=== PATIENT | female | born 1975 | race Caucasian/White ===

== ENCOUNTER 2021-06-11 20:53 | Inpatient (IN) ==
[2021-06-11] MEDS ORDERED: methylPREDNISolone 125 MG/2 ML VIAL IVP ONE (21:03)
[2021-06-11] MEDS ORDERED: Ipratropium/Albuterol Neb 3 ML IH ONE (21:03)
[2021-06-11 21:32] LABS: Basophils % 0.7 %; Eosinophils # 0.2 K/mcL (0.0-0.6); Eosinophils % 3.6 %; Hematocrit 37.5 % (35.3-44.9); Hemoglobin 11.6 g/dL (11.5-15.4); Lymphocytes # 1.6 K/mcL (0.6-4.6); Lymphocytes % 26.8 %; Mean Corpuscular HGB Conc 30.9 g/dL (31.6-35.5); Mean Corpuscular Hemoglobin 27.8 pg (28.0-33.3); Mean Corpuscular Volume 89.7 fL (83.0-100.0); Mean Platelet Volume 9.7 fL (9.4-12.4); Monocytes # 0.8 K/mcL (0.0-1.3); Monocytes % 13.4 %; Neutrophils # 3.4 K/mcL (1.6-8.9); Platelet Count 375 K/mcL (140-400); Red Blood Count 4.18 M/mcL (3.82-4.97); Red Cell Distribution Width 15.1 % (11.5-14.5); Segmented Neutrophils % 55.5 %
[2021-06-11 21:56] LABS: Alanine Aminotransferase 13 Units/L (7-52); Albumin 4.3 g/dL (3.5-5.7); Albumin/Globulin Ratio 1.4 (1.1-2.2); Alkaline Phosphatase 58 Units/L (34-104); Aspartate Amino Transferase 19 Units/L (13-39); BUN/Creatinine Ratio 15 (6-26); Bilirubin,Total 0.2 mg/dL (0.3-1.0); Blood Urea Nitrogen 14 mg/dL (6-20); Calcium 9.2 mg/dL (8.6-10.3); Carbon Dioxide 26 mEq/L (23-29); Chloride 106 mEq/L (98-107); Globulin 3.1 g/dL (2.4-3.5); Glucose 92 mg/dL (70-105); Osmolality,Calculated 288 (280-300); Potassium 3.5 mEq/L (3.5-5.1); Sodium 139 mEq/L (136-145); Total Protein 7.4 g/dL (6.4-8.9); Troponin I < 0.03 ng/mL (< 0.04); eGFR For African Americans > 60 (> 60); eGFR For Non-African Americans > 60 (> 60)
[2021-06-11] MEDS ORDERED: cefTRIAXone 1,000 MG in Water for inj. (sterile) 10 ML IVP ONE (22:09)
[2021-06-11 22:17] LABS: Influenza A PCR Negative (Negative); Influenza B PCR Negative (Negative); Resp. Syncytial Virus PCR Negative (Negative)
[2021-06-11 22:21] LABS: SARS-CoV-2 by PCR (In House) Positive (Negative)
[2021-06-11] MEDS ORDERED: Isovue-370 500 ML BOTTLE IVP ONE (22:25)
[2021-06-12] MEDS ORDERED: Morphine Sulfate 2 MG/ML SYRINGE IVP ONE (00:36)
[2021-06-12] MEDS ORDERED: Naloxone 0.4 MG/ML INJ IVP PRN (01:35)
[2021-06-12] MEDS ORDERED: Melatonin 3 MG TABLET PO PRN (01:35)
[2021-06-12] MEDS ORDERED: *HR* Dextrose 50 % in Water (Syg) 50 ML SYRINGE IVP PRN (01:40)
[2021-06-12] MEDS ORDERED: D5% in Water 1,000 ML IVC PRN (01:40)
[2021-06-12] MEDS ORDERED: Dextrose Gel 15 GM/37.5 ML TUBE PO PRN ×2 (01:40)
[2021-06-12] MEDS ORDERED: Acetaminophen 650 MG RECTAL SUPP RC PRN (01:56)
[2021-06-12] MEDS ORDERED: Furosemide 20 MG/2 ML VIAL IVP ONE (02:30)
[2021-06-12] MEDS ORDERED: Vancomycin 1,500 MG/265 ML IV.SOLN IVPB ONE (02:42)
[2021-06-12] MEDS ORDERED: Remdesivir 200 MG in 0.9 % Sodium Chloride 100 ML IVPB ONE (03:00)
[2021-06-12 03:45] LABS: ABG Base Excess -2 mEq/L (-2 to 3); ABG HCO3 23 mEq/L (21-27); ABG Oxygen Saturation 100 % (95-98); ABG PCO2 38 mmHg (35-45); ABG PH 7.39 pH Units (7.32-7.45); ABG PO2 220 mmHg (85-104); ABG TCO2 24 mEq/L (20-26)
[2021-06-12] MEDS: Ipratropium 1 PUFF INHALER IH SCH ×5 (03:56→20:04)
[2021-06-12] MEDS ORDERED: Chloraseptic Spray 177 ML BOTTLE MM PRN (04:48)
[2021-06-12] MEDS: Ondansetron 4 MG/2 ML VIAL IVP PRN (04:58)
[2021-06-12] MEDS: Morphine Sulfate 2 MG/ML SYRINGE IVP PRN ×3 (04:59→20:13)
[2021-06-12] MEDS: Acetylcysteine 10% 2 ML INHSOL IH SCH ×3 (07:20→20:05)
[2021-06-12] MEDS: Budesonide/Formoterol 160/4.5 1 PUFF INH IH SCH ×2 (07:20→20:06)
[2021-06-12] MEDS: Artificial Tears SOLN 15 ML BOTTLE BOTH EYES SCH ×4 (07:46→20:18)
[2021-06-12 08:57] LABS: Basophils % 0.2 %; Hematocrit 39.6 % (35.3-44.9); Hemoglobin 12.1 g/dL (11.5-15.4); Immature Granulocytes % 0.2 % (0-4); Lymphocytes # 0.6 K/mcL (0.6-4.6); Mean Corpuscular HGB Conc 30.6 g/dL (31.6-35.5); Mean Corpuscular Hemoglobin 27.4 pg (28.0-33.3); Mean Corpuscular Volume 89.6 fL (83.0-100.0); Mean Platelet Volume 10.5 fL (9.4-12.4); Monocytes # 0.1 K/mcL (0.0-1.3); Monocytes % 1.4 %; Neutrophils # 5.7 K/mcL (1.6-8.9); Platelet Count 327 K/mcL (140-400); Red Blood Count 4.42 M/mcL (3.82-4.97); Red Cell Distribution Width 15.2 % (11.5-14.5); Segmented Neutrophils % 89.2 %; White Blood Count 6.4 K/mcL (4.3-11.1)
[2021-06-12] MEDS: Saliva Stimulant 44.3ml BOTTLE PO SCH ×3 (09:17→20:18)
[2021-06-12] MEDS: Chlorhexidine Rinse 15 ML MOUTHWASH MM SCH ×2 (09:18→20:18)
[2021-06-12] MEDS: Saline Nasal Spray 44 ML BOTTLE NS SCH ×3 (09:18→20:18)
[2021-06-12 09:19] LABS: Prothrombin Time 11.3 Seconds (9.4-12.1)
[2021-06-12 09:21] LABS: Activated Partial Thrombo Time 31.1 Seconds (26.0-36.0)
[2021-06-12 09:39] LABS: Alanine Aminotransferase 13 Units/L (7-52); Albumin 4.3 g/dL (3.5-5.7); Albumin/Globulin Ratio 1.2 (1.1-2.2); Alkaline Phosphatase 60 Units/L (34-104); Aspartate Amino Transferase 18 Units/L (13-39); BUN/Creatinine Ratio 14 (6-26); Bilirubin,Total 0.3 mg/dL (0.3-1.0); Blood Urea Nitrogen 11 mg/dL (6-20); C-Reactive Protein < 5 mg/L (Less than 10); Calcium 9.2 mg/dL (8.6-10.3); Carbon Dioxide 23 mEq/L (23-29); Chloride 106 mEq/L (98-107); Ferritin < 8 ng/mL (10-120); Globulin 3.6 g/dL (2.4-3.5); Glucose 138 mg/dL (70-105); Lactate Dehydrogenase 169 Units/L (140-271); Osmolality,Calculated 286 (280-300); Phosphorous 2.8 mg/dL (2.7-4.5); Potassium 4.4 mEq/L (3.5-5.1); Sodium 137 mEq/L (136-145); Total Protein 7.9 g/dL (6.4-8.9); eGFR For African Americans > 60 (> 60); eGFR For Non-African Americans > 60 (> 60)
[2021-06-12] MEDS: Piperacillin/Tazobactam 3.375 GM in 0.9 % Sodium Chloride Mini Bag 100 ML IVPB SCH ×2 (10:59→12:07)
[2021-06-12 11:32] LABS: Magnesium 1.9 mg/dL (1.6-2.6)
[2021-06-12] MEDS ORDERED: Vancomycin 1,250 MG/262.5 ML IV.SOLN IVPB SCH (15:00)
[2021-06-12] MEDS ORDERED: Lidocaine -MPF 2% 5 ML VIAL ONE (15:29)
[2021-06-12] MEDS ORDERED: *HR* Propofol 200 MG/20 ML VIAL IVP ONE (15:29)
[2021-06-12] MEDS ORDERED: Lidocaine -MPF 4% 5 ML AMPUL ONE (15:45)
[2021-06-13] MEDS: Ipratropium 1 PUFF INHALER IH SCH ×6 (00:13→20:33)
[2021-06-13] MEDS: Piperacillin/Tazobactam 3.375 GM in 0.9 % Sodium Chloride Mini Bag 100 ML IVPB SCH ×2 (01:36→10:58)
[2021-06-13] MEDS: Artificial Tears SOLN 15 ML BOTTLE BOTH EYES SCH ×6 (01:45→20:41)
[2021-06-13 02:12] LABS: Basophils % 0.1 %; Hematocrit 35.8 % (35.3-44.9); Immature Granulocytes % 0.3 % (0-4); Lymphocytes # 0.9 K/mcL (0.6-4.6); Lymphocytes % 7.1 %; Mean Corpuscular HGB Conc 30.7 g/dL (31.6-35.5); Mean Corpuscular Hemoglobin 27.4 pg (28.0-33.3); Mean Corpuscular Volume 89.1 fL (83.0-100.0); Mean Platelet Volume 10.2 fL (9.4-12.4); Monocytes # 0.9 K/mcL (0.0-1.3); Monocytes % 7.3 %; Neutrophils # 10.4 K/mcL (1.6-8.9); Platelet Count 370 K/mcL (140-400); Red Blood Count 4.02 M/mcL (3.82-4.97); Red Cell Distribution Width 15.2 % (11.5-14.5); Segmented Neutrophils % 85.2 %
[2021-06-13 02:14] LABS: White Blood Count 12.2 K/mcL (4.3-11.1)
[2021-06-13] MEDS: Morphine Sulfate 2 MG/ML SYRINGE IVP PRN ×5 (02:34→22:46)
[2021-06-13 02:45] LABS: Phosphorous 2.3 mg/dL (2.7-4.5)
[2021-06-13 02:47] LABS: Alanine Aminotransferase 12 Units/L (7-52); Albumin 3.9 g/dL (3.5-5.7); Albumin/Globulin Ratio 1.2 (1.1-2.2); Alkaline Phosphatase 51 Units/L (34-104); Aspartate Amino Transferase 18 Units/L (13-39); BUN/Creatinine Ratio 20 (6-26); Bilirubin,Total 0.3 mg/dL (0.3-1.0); Blood Urea Nitrogen 15 mg/dL (6-20); Carbon Dioxide 22 mEq/L (23-29); Chloride 103 mEq/L (98-107); Globulin 3.2 g/dL (2.4-3.5); Glucose 126 mg/dL (70-105); Osmolality,Calculated 284 (280-300); Potassium 4.2 mEq/L (3.5-5.1); Sodium 136 mEq/L (136-145); Total Protein 7.1 g/dL (6.4-8.9); eGFR For African Americans > 60 (> 60); eGFR For Non-African Americans > 60 (> 60)
[2021-06-13] MEDS: Acetylcysteine 10% 2 ML INHSOL IH SCH ×4 (03:32→20:34)
[2021-06-13] MEDS: Remdesivir 100 MG in 0.9 % Sodium Chloride 100 ML IVPB SCH (06:05)
[2021-06-13] MEDS: Budesonide/Formoterol 160/4.5 1 PUFF INH IH SCH ×2 (07:33→20:34)
[2021-06-13] MEDS: Saliva Stimulant 44.3ml BOTTLE PO SCH ×4 (08:48→20:41)
[2021-06-13] MEDS: Furosemide 20 MG/2 ML VIAL IVP SCH (08:49)
[2021-06-13] MEDS: Chlorhexidine Rinse 15 ML MOUTHWASH MM SCH ×2 (08:49→20:41)
[2021-06-13] MEDS: Saline Nasal Spray 44 ML BOTTLE NS SCH ×4 (08:49→20:41)
[2021-06-13 12:11] LABS: ABG Base Excess -1 mEq/L (-2 to 3); ABG HCO3 24 mEq/L (21-27); ABG Oxygen Saturation 95 % (95-98); ABG PCO2 39 mmHg (35-45); ABG PO2 77 mmHg (85-104); ABG TCO2 25 mEq/L (20-26)
[2021-06-13] MEDS: levoFLOXacin 750 MG/150 ML 750 MG/150 ML BAG IVPB SCH (13:06)
[2021-06-13] MEDS: Ondansetron 4 MG/2 ML VIAL IVP PRN (20:42)
[2021-06-14] MEDS: Ipratropium 1 PUFF INHALER IH SCH ×7 (00:11→23:18)
[2021-06-14] MEDS: Artificial Tears SOLN 15 ML BOTTLE BOTH EYES SCH ×6 (02:48→22:40)
[2021-06-14] MEDS: Ondansetron 4 MG/2 ML VIAL IVP PRN ×2 (03:13→10:01)
[2021-06-14] MEDS: Morphine Sulfate 2 MG/ML SYRINGE IVP PRN (03:13)
[2021-06-14] MEDS: Remdesivir 100 MG in 0.9 % Sodium Chloride 100 ML IVPB SCH (03:28)
[2021-06-14 03:48] LABS: Alanine Aminotransferase 14 Units/L (7-52); Albumin 3.7 g/dL (3.5-5.7); Albumin/Globulin Ratio 1.2 (1.1-2.2); Alkaline Phosphatase 47 Units/L (34-104); Aspartate Amino Transferase 17 Units/L (13-39); BUN/Creatinine Ratio 20 (6-26); Bilirubin,Total 0.2 mg/dL (0.3-1.0); Blood Urea Nitrogen 18 mg/dL (6-20); Calcium 8.6 mg/dL (8.6-10.3); Carbon Dioxide 25 mEq/L (23-29); Chloride 105 mEq/L (98-107); Globulin 3.1 g/dL (2.4-3.5); Glucose 102 mg/dL (70-105); Osmolality,Calculated 292 (280-300); Potassium 3.7 mEq/L (3.5-5.1); Sodium 140 mEq/L (136-145); Total Protein 6.8 g/dL (6.4-8.9); eGFR For African Americans > 60 (> 60); eGFR For Non-African Americans > 60 (> 60)
[2021-06-14] MEDS: Acetylcysteine 10% 2 ML INHSOL IH SCH ×3 (04:07→16:04)
[2021-06-14] MEDS: Budesonide/Formoterol 160/4.5 1 PUFF INH IH SCH ×2 (07:54→19:58)
[2021-06-14] MEDS: Saliva Stimulant 44.3ml BOTTLE PO SCH ×3 (09:08→15:53)
[2021-06-14] MEDS: Saline Nasal Spray 44 ML BOTTLE NS SCH ×4 (09:08→22:40)
[2021-06-14] MEDS: Chlorhexidine Rinse 15 ML MOUTHWASH MM SCH ×2 (09:22→22:40)
[2021-06-14] MEDS: Furosemide 20 MG/2 ML VIAL IVP SCH (09:26)
[2021-06-14] MEDS: levoFLOXacin 750 MG/150 ML 750 MG/150 ML BAG IVPB SCH (12:23)
[2021-06-15] MEDS: Saliva Stimulant 44.3ml BOTTLE PO SCH ×5 (03:48→20:54)
[2021-06-15] MEDS: Artificial Tears SOLN 15 ML BOTTLE BOTH EYES SCH ×6 (03:48→20:54)
[2021-06-15] MEDS: Remdesivir 100 MG in 0.9 % Sodium Chloride 100 ML IVPB SCH (03:49)
[2021-06-15] MEDS: Ipratropium 1 PUFF INHALER IH SCH ×6 (04:08→23:51)
[2021-06-15 06:20] LABS: Alanine Aminotransferase 13 Units/L (7-52); Albumin 3.8 g/dL (3.5-5.7); Albumin/Globulin Ratio 1.2 (1.1-2.2); Alkaline Phosphatase 54 Units/L (34-104); Aspartate Amino Transferase 12 Units/L (13-39); BUN/Creatinine Ratio 24 (6-26); Bilirubin,Total 0.3 mg/dL (0.3-1.0); Blood Urea Nitrogen 22 mg/dL (6-20); Calcium 9.1 mg/dL (8.6-10.3); Carbon Dioxide 26 mEq/L (23-29); Chloride 103 mEq/L (98-107); Globulin 3.1 g/dL (2.4-3.5); Glucose 80 mg/dL (70-105); Osmolality,Calculated 288 (280-300); Potassium 3.6 mEq/L (3.5-5.1); Sodium 138 mEq/L (136-145); Total Protein 6.9 g/dL (6.4-8.9); eGFR For African Americans > 60 (> 60); eGFR For Non-African Americans > 60 (> 60)
[2021-06-15] MEDS: Budesonide/Formoterol 160/4.5 1 PUFF INH IH SCH ×2 (07:57→20:21)
[2021-06-15] MEDS: Saline Nasal Spray 44 ML BOTTLE NS SCH ×4 (09:54→20:53)
[2021-06-15] MEDS: Chlorhexidine Rinse 15 ML MOUTHWASH MM SCH ×2 (09:54→20:54)
[2021-06-15] MEDS: levoFLOXacin 750 MG/150 ML 750 MG/150 ML BAG IVPB SCH (10:15)
[2021-06-15] MEDS: Furosemide 20 MG/2 ML VIAL IVP SCH (10:16)
[2021-06-15] MEDS: Morphine Sulfate 2 MG/ML SYRINGE IVP PRN ×2 (16:28→20:56)
[2021-06-15] MEDS: Ondansetron 4 MG/2 ML VIAL IVP PRN (20:48)
[2021-06-16] MEDS: Artificial Tears SOLN 15 ML BOTTLE BOTH EYES SCH ×3 (01:43→07:51)
[2021-06-16] MEDS: Morphine Sulfate 2 MG/ML SYRINGE IVP PRN ×2 (01:57→08:07)
[2021-06-16] MEDS: Remdesivir 100 MG in 0.9 % Sodium Chloride 100 ML IVPB SCH (03:04)
[2021-06-16] MEDS: Ipratropium 1 PUFF INHALER IH SCH ×3 (04:06→11:39)
[2021-06-16 04:32] VITALS: BP 110/76; PULSE 76; TEMP 98.3; O2SAT 97
[2021-06-16] MEDS: Budesonide/Formoterol 160/4.5 1 PUFF INH IH SCH (07:32)
[2021-06-16] MEDS: Saline Nasal Spray 44 ML BOTTLE NS SCH (07:51)
[2021-06-16] MEDS: Chlorhexidine Rinse 15 ML MOUTHWASH MM SCH (07:51)
[2021-06-16] MEDS: Saliva Stimulant 44.3ml BOTTLE PO SCH (07:51)
[2021-06-16 08:02] LABS: Alanine Aminotransferase 14 Units/L (7-52); Albumin/Globulin Ratio 1.3 (1.1-2.2); Alkaline Phosphatase 57 Units/L (34-104); Aspartate Amino Transferase 12 Units/L (13-39); BUN/Creatinine Ratio 29 (6-26); Bilirubin,Total 0.2 mg/dL (0.3-1.0); Blood Urea Nitrogen 30 mg/dL (6-20); Calcium 9.8 mg/dL (8.6-10.3); Carbon Dioxide 29 mEq/L (23-29); Chloride 98 mEq/L (98-107); Globulin 3.1 g/dL (2.4-3.5); Glucose 107 mg/dL (70-105); Osmolality,Calculated 289 (280-300); Potassium 3.4 mEq/L (3.5-5.1); Sodium 136 mEq/L (136-145); Total Protein 7.1 g/dL (6.4-8.9); eGFR For African Americans > 60 (> 60); eGFR For Non-African Americans 57 (> 60)
[2021-06-16] MEDS: Furosemide 20 MG/2 ML VIAL IVP SCH (08:06)
[2021-06-16] MEDS: levoFLOXacin 750 MG/150 ML 750 MG/150 ML BAG IVPB SCH (08:07)
== END 2021-06-16 12:05 | disposition home or self-care (01) | DRG 720 ==
LOC: EMEROOARM 20:53 → 2ANU 20:53 → SUATTDRO 06-12 01:01 → 3BNU 06-12 01:20 → CDU 06-12 02:34 → SUATTDRO 06-12 02:35 → 3NENU 06-12 09:48
PROVIDERS: ADMIT Internal Medicine; ATTEND Internal Medicine
PROC: ENDOBFB (2021-06-12 15:30)